=== PATIENT | male | born 1980 | race Caucasian/White ===

== ENCOUNTER 2018-08-30 12:25 | Emergency (ER) | payer SELFPAY ==
[~2018-08-30] VITALS: Ht 175.3 cm; Wt 77.0 kg
[2018-08-30] MEDS ORDERED: SODIUM CHLORIDE 0.9% 1,000 ML IV ONE (12:46)
[2018-08-30 13:07] LABS: BASOPHILS % 0.5 % (0.0-2.0); EOSINOPHILS % 0.1 % (0.0-5.0); HEMOGLOBIN. 15.5 g/dL (14.0-18.0); LYMPHOCYTES % 17.5 % (20.0-50.0); MEAN CORPUSCULAR HEMOGLOBIN 31.4 pg (28.0-32.0); MEAN PLATELET VOLUME 9.1 fl (7.4-10.4); MONOCYTES % 5.8 % (2.0-8.0); NEUTROPHILS % 76.1 % (40.0-76.0); PLATELET 174 x1000/uL (130-400); RED BLOOD CELL COUNT 4.94 mill/uL (4.7-6.1)
[2018-08-30 13:13] LABS: CHLORIDE 107 mEq/L (98-107)
[2018-08-30 13:17] LABS: ETHANOL BLOOD < 10 mg/dL
[2018-08-30 13:21] LABS: CREATINE KINASE 170 IU/L (39-308)
[2018-08-30 13:26] LABS: CREATINE KINASE MB FRACTION < 1.0 ng/mL (0.5-3.6)
[2018-08-30 14:10] LABS: *BARBITURATES SCREEN URINE NEGATIVE (NEGATIVE); *BENZODIAZEPINES SCREEN URINE NEGATIVE (NEGATIVE); *COCAINE SCREEN URINE NEGATIVE (NEGATIVE)
[2018-08-30 14:12] LABS: *AMPHETAMINES SCREEN URINE NEGATIVE (NEGATIVE); CANNABINOID URINE SCREEN NEGATIVE (NEGATIVE); METHADONE URINE SCREEN NEGATIVE (NEGATIVE); OPIATES URINE SCREEN NEGATIVE (NEGATIVE); PHENCYCLIDINE URINE SCREEN NEGATIVE (NEGATIVE)
[2018-08-30 16:02] VITALS: BP 125/86
== END 2018-08-30 15:48 | disposition home or self-care (01) ==
LOC: ER 12:25
DX: F10.20 Alcohol dependence, uncomplicated (principal); R53.1 Weakness; R03.0 Elevated blood-pressure reading, without diagnosis of hypertension; R53.81 Other malaise; R20.0 Anesthesia of skin; R20.2 Paresthesia of skin; F17.290 Nicotine dependence, other tobacco product, uncomplicated; Y90.9 Presence of alcohol in blood, level not specified
CPT/HCPCS: 36415; 70450; 80048; 80305; 80307; 80320; 80329; 82550; 82553; 82962; 83735; 84484; 85025; 93005; 99284; 99406; J7030; G0480